=== PATIENT | female | born 1945 | race Caucasian/White ===

== ENCOUNTER 2020-09-13 08:51 | Day surgery (SDC) | payer OTHER, MEDICARE ==
--- OUTSIDE RECORDS SUMMARY | 2020-09-13 08:54 | XMS REPORT | Continuity of Care Document ---
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 gabapentin 300 300 mg = 1 Active Mische r MG Oral Capsule cap, PO, 019 Neuro BID, # 60 cap, 3 Refill(s), Pharmacy: [id number] Lorazepam 1 mg, PO, Active [facility] PRN, 0 019 Neuro Refill(s) meloxicam 15 mg, PO, Active Mischer Daily, 0 019 Neuro Refill(s) Amlodipine 10 mg, PO, Active Mischer Daily, 0 019 Neuro Refill(s) Claritin 10 mg, PO, Active Mischer Daily, 0 019 Neuro Refill(s) Metformin 1,000 mg, Active Mischer PO, BID, 0 019 Neuro Refill(s) atorvastatin 20 mg, PO, Active Mischer Daily, 0 019 Neuro Refill(s) Paroxetine 20 mg, PO, Active [facility]ischer Daily, 0 019 Neuro Refill(s) Allergies, Adverse Reactions, Alerts No Known Medication Allergies Immunizations No Data Provided for This Section Results No Data Provided for This Section Pathology Reports No Data Provided for This Section Diagnostic Reports No Data Provided for This Section Consultation Notes No Data Provided for This Section Discharge Summaries No Data Provided for This Section History and Physicals No Data Provided for This Section Vital Signs Vital Sign Value Date Comments Source Systolic (mm Hg) 120 04/22/2019 [facility] [place] Diastolic (mm Hg) 64 04/22/2019 [facility] Ne uro Heart Rate 82 04/22/2019 [facility] Neuro Respitory Rate 16 04/22/2019 [facility] Neuro Height 157.48 cm 04/22/2019 [facility] Neuro Weight 64.545 04/22/2019 [facility] Neuro BMI Calculated 26.03 04/22/2019 [facility] Neuro BMI Calculated 26.03 03/16/2019 [facility] Neuro Weight 64.545 03/16/2019 [facility] Neuro Height 157.48 cm 03/16/2019 [facility] Neuro Systolic (mm Hg) 162 03/16/2019 [facility] [place] Diastolic (mm Hg) 79 03/16/2019 [facility] Ne uro Heart Rate 88 03/16/2019 [facility] Neuro Respitory Rate 16 03/16/2019 [facility] Neuro Encounters Location Location Encounter Encounter Reason Attending ADM DE Stat us Source Details Type Number For Provider Date Date Visit Outpatient [id number] Salty 03/16 [facility] Evan MNA Outpatient [id number] Salty 03/16 03/17 [facility] Neurology [facility] [place] Outpatient [id number] Salty 04/22 [facility] Evan MNA Outpatient [id number] Salty 04/22 04/23 [facility] Neurology [facility] Neuro [place] Outpatient [id number] Salty 06/22 [facility] [place] MNA Ambulatory [id number] Salty 06/22 06/22 [facility] Neurology Pre-Reg [facility] Neuro [place] MNA Outside [id number] 08/19 08/21 [facility] Neurology Medical /2018 Neuro [place] Records Procedures Procedure Code Date Perfomer Comments Source Colonoscopy [id number] [facility] Neuro Hysterectomy [id number] [facility] Neur o Rectal prolapse [id number] [facility] N euro care Assessment and Plan No Data Provided for This Section Plan of Care No Data Provided for This Section Social History Social History Date Source Social History TypeResponse 03/16/2019 [facility] o Employment/School 1, 2 Smoking Status Unknown if ever smoked; Exposure to [employer] Smoke Unable to obtain; Cigarette Smoking Last 365 Days Unable to obtain; Reg Smoking Cessation Counseling No entered on: 04/22/19 [id number] Sheehan release medical information to Favian syed Family History No Data Provided for This Section Advance Directives No Data Provided for This Section Functional Status No Data Provided for This Section
[2020-09-13] MEDS ORDERED: NA CHLORIDE 0.9% 1,000 ML ONE (09:30)
[2020-09-13] MEDS ORDERED: GLYCOPYRROLATE 0.2 MG/ML SYR ONE (10:47)
[2020-09-13] MEDS ORDERED: LIDOCAINE 1% MPF 30 ML VIAL ONE (10:47)
[2020-09-13] MEDS ORDERED: propofoL 200 MG/20 ML VIAL IV ONE ×2 (10:47→12:31)
--- NOTE | 2020-09-13 12:18 | ENDO RPT ---
[address], [address] COLONOSCOPY PROCEDURE REPORT EXAM DATE: 09/13/2020 PATIENT NAME: Melissa Cooley MR #: [id number] BIRTHDATE: 1945 ATTENDING: Ariel Reese DR STATUS: outpatient GROUND OPERATIONS SUPERINTENDENT: Fox Hoyt [facility], Florence Bishop RN, and Rosana GOMES INDICATIONS: The patient is a 75 yr old Female here for a colonoscopy due to colon cancer screening and change in bowel habits PROCEDURE PERFORMED: Colonoscopy with biopsy MEDICATIONS: Per Anesthesia. ESTIMATED BLOOD LOSS: None CONSENT: The patient understands the risks and benefits of the procedure and understands that these risks include, but are not limited to: sedation, allergic reaction, infection, perforation and/or bleeding. Alternative means of evaluation and treatment include, among others: physical exam, x-rays, and/or surgical intervention. The patient elects to proceed with this endoscopic procedure. DESCRIPTION OF PROCEDURE: During intra-op preparation period all mechanical medical equipment was checked for proper function. Hand hygiene and appropriate measures for infection prevention was taken. Procedure, possible complications, alternatives including, but not limited to possibility of bleeding, perforation, tear, infection, sepsis, need for surgery, need for blood transfusion, were explained to the patient. After the risks, benefits and alternatives of the procedure were thoroughly explained, Informed consent was verified, confirmed and timeout was successfully executed by the treatment team. The patient was placed in the left lateral position. A digital rectal exam was performed and revealed internal hemorrhoids. After appropriate level of anesthesia, the scope was passed. The EC-[id number] ([id number]) and [id number] ([id number]) endoscope was introduced through the anus and advanced to the cecum, which was identified by the ileocecal valve. The quality of the prep was fair. The instrument was then slowly withdrawn as the colon was fully examined. Scope withdrawal time was 12 minutes. COLON FINDINGS: A large sized diffuse patch of atrophic abnormal mucosa was found at the cecum and splenic flexure. The mucosa was atrophic, erythematous and had petechiae. A biopsy of the area was performed using cold forceps. A mild spasm was present throughout the entire examined colon. Retroflexed views revealed no abnormalities. The scope was then completely withdrawn from the patient and the procedure terminated. ADVERSE EVENTS: There were no complications. IMPRESSIONS: 1. Large sized diffuse abnormal mucosa was found at the cecum and splenic flexure; The mucosa was atrophic, erythematous and had petechiae; biopsy of the area was performed using cold forceps 2. Mild spasm throughout the entire examined colon RECOMMENDATIONS: 1. avoid NSAIDS for 2 weeks 2. await biopsy results 3. fiber rich diet 4. follow-up: office 2 week(s) 5. Monitor for any evidence of rectal bleeding. 6. hemorrhoidal hygiene 7. increase dietary water RECALL: for Colonoscopy, pending biopsy results. Ariel Reese DR eSigned: Ariel Reese DR 09/13/2020 12:17 PM cc: CPT CODES: ICD9 CODES: PATIENT NAME: Melissa Cooley MR#: [id number]
[2020-09-13 13:58] VITALS: BP 130/57; TEMP 97.7; O2SAT 97
== END 2020-09-13 12:21 | disposition home or self-care (01) ==
LOC: OR 08:51
PROVIDERS: ATTEND Surgery
PROC: 0DBL8ZX Excision of Transverse Colon, Via Natural or Artificial Opening Endoscopic, Diagnostic (ICD-10-PCS; 2020-09-13)
PROC: 0DBH8ZX Excision of Cecum, Via Natural or Artificial Opening Endoscopic, Diagnostic (ICD-10-PCS; principal; 2020-09-13 11:00)
DX: R10.9 Unspecified abdominal pain (principal); K59.00 Constipation, unspecified; K64.8 Other hemorrhoids; Z20.822 Contact with and (suspected) exposure to COVID-19
CPT/HCPCS: 82947; 88305; 45380; U0002; J2704 ×2; J7030

== ENCOUNTER 2022-05-11 00:57 | Emergency (ER) | payer OTHER, MEDICARE ==
[2022-05-11] MEDS ORDERED: NA CHLORIDE 0.9% 1,000 ML ONE (02:20)
[2022-05-11 02:47] LABS: Absolute Lymphocytes (CBC) 1.8 K/uL (0.7-4.9); Hematocrit 32.9 % (36.0-45.0); Lymphocytes % 24.9 % (15.3-44.8); MCV 83.4 fL (80-100); MPV 9.4 fL (7.6-11.3); RBC Red Blood Cell Count 3.94 M/uL (3.86-4.86)
[2022-05-11 02:50] LABS: Urine Bacteria <20 /HPF (<20); Urine Mucus Slight /HPF (None Seen); Urine RBC <5 /HPF (None Seen)
[2022-05-11 02:57] LABS: Potassium 3.7 mmol/L (3.5-5.1)
[2022-05-11 03:59] LABS: SARS-CoV-2 Antigen Rapid Res Negative (Negative)
--- NOTE | 2022-05-11 05:14 | ER ---
Nurse's Notes [facility] Name: Melissa Cooley Age: 76 yrs Sex: Female : 1945 Arrival Date: 05/11/2022 Time: 01:03 Bed 16 Private MD: Diagnosis: Person with feared health complaint in whom no diagnosis is made;Dehydration Presentation: 05/11 01:30 Chief complaint: Patient states: she lives at [facility] and thinks "someone bb there is trying to poison some of us" she started having visual hallucinations she was also diagnosed with Covid on Friday and is taking medication for it. Coronavirus screen: cough unrelated to allergies, muscle pain, Client reports previous positive COVID test result. Ebola Screen: No symptoms or risks identified at this time. Initial Sepsis Screen: Does the patient meet any 2 criteria? No. Patient's initial sepsis screen is negative. Does the patient have a suspected source of infection? Yes: Other: positive for Covid. Risk Assessment: Do you want to hurt yourself or someone else? Patient reports no desire to harm self or others. Onset of symptoms is unknown. 01:30 Method Of Arrival: Ambulatory bb 01:30 Acuity: DIONISIO 2 bb Historical: - Allergies: 01:36 No Known Allergies; bb - Home Meds: 01:36 Metformin Oral [Active]; paroxetine oral [Active]; amlodipine oral [Active]; atorva bb [Active]; Lorazepam Oral [Active]; - PMHx: 01:36 Diabetes mellitus; Anxiety; bb - Immunization history:: unknown. - Social history:: Smoking status: unknown. - Family history:: not pertinent. - Hospitalizations: : No recent hospitalization is reported. Screenin:31 Abuse screen: Denies threats or abuse. Nutritional screening: No deficits noted. ja4 Tuberculosis screening: No symptoms or risk factors identified. Fall Risk None identified. Assessment: 02:31 General: Appears in no apparent distress. Pain: Denies pain. Neuro: No deficits noted. ja4 Reports pt thinks her assisted living staff is putting something in food to get rid of the residents. Respiratory: No deficits noted. Vital Signs: 01:30 BP 120 / 90; Pulse 93; Resp 18; Temp 98.3(O); Pulse Ox 97% on R/A; Weight 63.5 kg (R); bb Height 5 ft. 2 in. (157.48 cm) (R); Pain 0/10; 02:33 BP 102 / 65; Pulse 87; Resp 14; Pulse Ox 95% on R/A; ja4 05:22 BP 123 / 84; Pulse 78; Resp 14; Pulse Ox 96% on R/A; ja4 01:30 Body Mass Index 25.61 (63.50 kg, 157.48 cm) ED Course: 01:03 Patient arrived in ED. ja2 01:04 Ki Albarran MD is Attending Physician. rn 01:27 See Wilburn RN is Primary Nurse. ke1 01:36 Triage completed. bb 01:36 Arm band placed on Patient placed in an exam room, on a stretcher, on pulse oximetry. bb 02:06 XRAY Chest (1 view) In Process Unspecified. EDMS 02:20 CT Head Brain wo Cont In Process Unspecified. EDMS 02:30 Urine Culture Sent. ja4 02:30 Urine Microscopic Only Sent. ja4 02:30 Basic Metabolic Panel Sent. ja4 02:30 CBC with Diff Sent. ja4 02:31 No apparent distress. ja4 02:31 Bed in low position. Call light in reach. Side rails up X 1. Side rails up X2. ja4 02:31 No provider procedures requiring assistance completed. Inserted saline lock: 20 gauge ja4 in right wrist, using aseptic technique. Blood collected. 05:22 IV discontinued, intact, bleeding controlled, No redness/swelling at site. Pressure ja4 dressing applied. Administered Medications: 02:34 Drug: NS 0.9% 1000 ml Route: IV; Rate: 1000 ml; Site: right wrist; ja4 Medication: 02:31 VIS not applicable for this client. ja4 Outcome: 05:13 Discharge ordered by . rn 05:22 Discharged to home ambulatory. ja4 05:22 Condition: good 05:22 Discharge instructions given to patient, Instructed on discharge instructions, follow up and referral plans. Demonstrated understanding of instructions, follow-up care. 05:24 Patient left the ED. ja4 Signatures: Dispatcher [employer] EDKimberly Colunga RN RN bb Nieto, Roman, MD MD rn Alexander, Jessica ja2 See Wilburn RN RN ke1 Sammy Pérez, RN RN ja4
--- NOTE | 2022-05-11 05:14 | EDPHYS ---
Physician Documentation [facility] Name: Melissa Cooley Age: 76 yrs Sex: Female : 1945 Arrival Date: 05/11/2022 Time: 01:03 Bed 16 Private MD: ED Physician Ki Albarran HPI: 05/11 02:28 This 76 yrs old Female presents to ER via Ambulatory with complaints of HALLUCINATION. rn 02:28 The patient presents with hallucinations. Onset: The symptoms/episode began/occurred at rn an unknown time. Possible causes: unknown. Associated signs and symptoms: Pertinent negatives: abdominal pain, chest pain, headache, seizure, shortness of breath, vomiting. Current symptoms: In the emergency department the patient's symptoms are unchanged from the initial presentation. It is unknown whether or not the patient has had similar symptoms in the past. The patient has not recently seen a physician. Pt reports believes that someone is poisoning her, states not sure who, but thinks they are putting something into her food. She has locked herself in her room, using garbage can to go to bathroom. Drove herself here because wants to be tested for poison. Also, diagnosed with COVID this week, started on unknown medication, is supposed to take it for days. No fever. No sob. No abd pain. Reports not eating or drinking much because scared to leave her room. . Historical: - Allergies: 01:36 No Known Allergies; bb - Home Meds: 01:36 Metformin Oral [Active]; paroxetine oral [Active]; amlodipine oral [Active]; atorva bb [Active]; Lorazepam Oral [Active]; - PMHx: 01:36 Diabetes mellitus; Anxiety; bb - Immunization history:: unknown. - Social history:: Smoking status: unknown. - Family history:: not pertinent. - Hospitalizations: : No recent hospitalization is reported. ROS: 02:28 Constitutional: Negative for fever, chills, and weight loss, Eyes: Negative for injury, rn pain, redness, and discharge, Neck: Negative for injury, pain, and swelling, Cardiovascular: Negative for chest pain, palpitations, and edema, Respiratory: Negative for shortness of breath, cough, wheezing, and pleuritic chest pain, Abdomen/GI: Negative for abdominal pain, nausea, vomiting, diarrhea, and constipation, Back: Negative for injury and pain, MS/Extremity: Negative for injury and deformity, Skin: Negative for injury, rash, and discoloration, Neuro: Negative for headache, numbness, tingling, and seizure. Exam: 02:28 Constitutional: This is a well developed, well nourished patient who is awake, alert, rn and in no acute distress. Head/Face: Normocephalic, atraumatic. Eyes: Periorbital areas with no swelling, redness, or edema. ENT: Dry MM Neck: Trachea midline, no thyromegaly or masses palpated, and no cervical lymphadenopathy. Supple, full range of motion without nuchal rigidity, or vertebral point tenderness. No Meningismus. Cardiovascular: Regular rate and rhythm. No pulse deficits. Respiratory: No increased work of breathing, no retractions or nasal flaring. Abdomen/GI: Soft, non-tender Skin: Warm, dry MS/ Extremity: Pulses equal, no cyanosis. Neuro: Awake and alert, GCS 15, oriented to person, place, time, and situation. Cranial nerves II-XII grossly intact. Motor strength 5/5 in all extremities. Sensory grossly intact. Vital Signs: 01:30 BP 120 / 90; Pulse 93; Resp 18; Temp 98.3(O); Pulse Ox 97% on R/A; Weight 63.5 kg (R); bb Height 5 ft. 2 in. (157.48 cm) (R); Pain 0/10; 02:33 BP 102 / 65; Pulse 87; Resp 14; Pulse Ox 95% on R/A; ja4 05:22 BP 123 / 84; Pulse 78; Resp 14; Pulse Ox 96% on R/A; ja4 01:30 Body Mass Index 25.61 (63.50 kg, 157.48 cm) bb MDM: 01:04 Patient medically screened. rn 05:10 Differential Diagnosis: electrolyte abnormality, hypoglycemia, intracranial bleed, UTI, rn volume depletion. Data reviewed: vital signs, nurses notes, lab test result(s), radiologic studies, CT scan, plain films, and as a result, I will discharge patient. Counseling: I had a detailed discussion with the patient and/or guardian regarding: the historical points, exam findings, and any diagnostic results supporting the discharge/admit diagnosis, lab results, radiology results, the need for outpatient follow up, to return to the emergency department if symptoms worsen or persist or if there are any questions or concerns that arise at home. Response to treatment: and as a result, I will discharge patient. Special discussion: I discussed with the patient/guardian in detail that at this point there is no indication for admission to the hospital. It is understood, however, that if the symptoms persist or worsen the patient needs to return immediately for re-evaluation. ED course: CT head without acute findings, CXR with possible residua infection vs atelectasis, already on Abx for this and still taking, no oxygen requirement, patient feels fine, denies sob. Pt wants to go back home. Offered her observation and she declined. Spoke with her at length regarding her concerns of possible poisoning and told her to report it and also talk to her family about it. . 05/11 01:44 Order name: CBC with Diff; Complete Time: 03:02 rn 05/11 01:44 Order name: Basic Metabolic Panel; Complete Time: 03:02 rn 05/11 01:44 Order name: CT Head Brain wo Cont rn 05/11 01:44 Order name: Urine Culture rn 05/11 01:44 Order name: Urine Microscopic Only; Complete Time: 03:02 rn 05/11 02:45 Order name: SARS RAPID; Complete Time: 04:06 ds4 05/11 01:44 Order name: IV Start; Complete Time: 02:30 rn 05/11 01:44 Order name: XRAY Chest (1 view) rn Administered Medications: 02:34 Drug: NS 0.9% 1000 ml Route: IV; Rate: 1000 ml; Site: right wrist; ja4 Disposition Summary: 05/11/22 05:13 Discharge Ordered Location: Home rn Problem: an ongoing problem rn Symptoms: have improved rn Condition: Stable rn Diagnosis - Person with feared health complaint in whom no diagnosis is made rn - Dehydration rn Followup: rn - With: Private Physician - When: 1 - 2 days - Reason: Recheck today's complaints, Re-evaluation by your physician Discharge Instructions: - Discharge Summary Sheet rn - Dehydration, Adult rn Forms: - Medication Reconciliation Form rn - Thank You Letter rn - Antibiotic clinical staff rn - Prescription Opioid Use rn Signatures: Dispatcher [employer] EDKimberly Colunga RN RN bb Nieto, Roman, MD MD rn Brown, Sophia, PA PA sb3 Sammy Pérez, RN RN ja4
[2022-05-11 09:11] VITALS: TEMP 98.3
[2022-05-11 09:15] VITALS: BP 123/84; O2SAT 96
--- NOTE | 2022-05-12 16:51 | RAD REPORT ---
EXAM DESCRIPTION: RAD - Chest Single View - 05/11/2022 2:04 am CLINICAL HISTORY: COVID + TECHNIQUE: Frontal view of the chest. COMPARISON: No relevant prior studies available. FINDINGS: Lungs: Minimal hazy bibasilar opacities. Pleural space: Unremarkable. No pneumothorax. Heart: Unremarkable. No cardiomegaly. Mediastinum: Unremarkable. Bones/joints: Multilevel spondylosis. No acute fracture. Vasculature: Thoracic aortic atherosclerosis. IMPRESSION: Minimal hazy bibasilar opacities (atelectasis and/or infiltrate). Electronically signed by: Anne Guerra MD 05/11/2022 3:49 AM CDT Due to temporary technical issues with the PACS/Fluency reporting system, reports are being signed by the in house radiologists without review as a courtesy to insure prompt reporting. The interpreting radiologist is fully responsible for the content of the report.
--- NOTE | 2022-05-12 17:24 | RAD REPORT ---
EXAM DESCRIPTION: CT - Head Brain Wo Cont - 05/11/2022 6:45 am CLINICAL HISTORY: AMS TECHNIQUE: Axial computed tomography images of the head/brain without intravenous contrast. Sagitt al and coronal reformatted images were created and reviewed. This CT exam was performed using one o r more of the following dose reduction techniques: automated exposure control, adjustment of the mA and/or kV according to patient size, and/or use of iterative reconstruction technique. COMPARISON: CT Head dated 07/27/2018 FINDINGS: Brain: Mild to moderate cerebral atrophy and bilateral periventricular and subcortical w markos matter low-attenuation most compatible with chronic microvascular angiopathy, mildly progressed. No hemorrhage. Ventricles: Unremarkable. No ventriculomegaly. Bones/joints: Unremarkable. No acute fracture. Soft tissues: Unremarkable. Vasculature: There is atherosclerotic disease of the internal carotid and vertebral arteries bilate rally. Sinuses: Complete opacification of the left maxillary sinus with wall thickening compatible with ch ronic sinusitis. Complete opacification of the left frontal sinus. Partial opacification of the lef t anterior ethmoid sinus. Minimal right maxillary and ethmoid and bilateral sphenoid sinus mucosal th ickening. Mastoid air cells: Unremarkable as visualized. No mastoid effusion. IMPRESSION: 1. No acute hemorrhage, focal mass or large territory infarction. 2. Other findings as above. Electronically signed by: Anne Guerra MD 05/11/2022 3:54 AM CDT Due to temporary technical issues with the PACS/Fluency reporting system, reports are being signed by the in house radiologists without review as a courtesy to insure prompt reporting. The interpreting radiologist is fully responsible for the content of the report.
== END 2022-05-11 05:24 | disposition home or self-care (01) ==
LOC: ER 00:57
DX: Z71.1 Person with feared health complaint in whom no diagnosis is made (principal); E86.0 Dehydration; F41.9 Anxiety disorder, unspecified; E11.9 Type 2 diabetes mellitus without complications; Z20.822 Contact with and (suspected) exposure to COVID-19
CPT/HCPCS: 87088; 85025; 87086; 80048; 36415; 81015; 70450; 71045; 99284; 87811; J7030

== ENCOUNTER 2023-08-07 14:21 | Emergency (ER) | payer OTHER, MEDICARE ==
[2023-08-07] MEDS ORDERED: ACETAMINOPHEN 500 MG TAB ONE (15:20)
[2023-08-07] MEDS ORDERED: LIDOCAINE 4% PATCH ONE (15:20)
[2023-08-07] MEDS ORDERED: predniSONE 20 MG TAB ONE (15:20)
--- NOTE | 2023-08-07 16:04 | RAD REPORT ---
EXAM DESCRIPTION: RAD - Knee Left 3 View - 08/07/2023 3:27 pm CLINICAL HISTORY: PAIN COMPARISON: No comparisons TECHNIQUE: Left knee, 3 views. FINDINGS: No fracture, dislocation or periosteal reaction.Mild joint effusion seen. Mild tricompartm ental osteoarthritic changes with marginal spurring most notably at the patellofemoral articulation. No soft tissue abnormality. Clinical concerns for internal derangement or occult bony injury could be further assessed with MR im aging. IMPRESSION: No acute osseous abnormality. Mild joint effusion and mild degenerative changes as above .
--- NOTE | 2023-08-07 16:15 | ER ---
Nurse's Notes [facility] Name: Melissa Cooley Age: 77 yrs Sex: Female : 1945 Arrival Date: 08/07/2023 Time: 14:21 Bed DIS3 Private MD: Diagnosis: Pain in left knee Presentation: 08/07 14:32 Chief complaint: Patient states: fell last night, fell to both knees, left hurts worse iw than right. Coronavirus screen: At this time, the client does not indicate any symptoms associated with coronavirus-19. Ebola Screen: Patient negative for fever greater than or equal to 101.5 degrees Fahrenheit, and additional compatible Ebola Virus Disease symptoms Patient denies exposure to infectious person. Patient denies travel to an Ebola-affected area in the 21 days before illness onset. No symptoms or risks identified at this time. Risk Assessment: Do you want to hurt yourself or someone else? Patient reports no desire to harm self or others. Onset of symptoms was August 06, 2023. 14:32 Method Of Arrival: EMS: [facility] iw 14:32 Acuity: DIONISIO 4 iw Historical: - PMHx: 14:33 Anxiety; diabetes mellitus; iw Screenin:56 [facility] ED Fall Risk Assessment (Adult) History of falling in the last 3 months, iw including since admission Yes- single mechanical fall (1 pt). Abuse screen: Denies threats or abuse. Denies injuries from another. Nutritional screening: No deficits noted. Tuberculosis screening: No symptoms or risk factors identified. Assessment: 14:55 General: Appears in no apparent distress. Behavior is calm, cooperative. Pain: iw Complains of pain in right knee. Pain: Complains of pain in left leg, right leg. Neuro: Level of Consciousness is awake, alert, obeys commands. Vital Signs: 14:30 BP 131 / 59; Pulse 83; Resp 16; Pulse Ox 94% on R/A; iw ED Course: 14:25 Patient arrived in ED. iw 14:28 Thomas Pack MD is Attending Physician. ec2 14:31 Emilie Salcedo, GABRIELLA is Primary Nurse. iw 14:33 Triage completed. iw 15:29 Knee Left 3 View XRAY In Process Unspecified. EDMS Administered Medications: 15:31 Drug: Acetaminophen PO 1000 mg PO once Route: PO; iw 16:00 Follow up: Response: No adverse reaction iw 15:31 Drug: Lidoderm Topical Patch 5 % (700 mg/patch) 1 patches Topical in affected area iw once; leave on for 12 hours; cover most painful area; may cut into smaller pieces Route: Topical; Site: affected area; 15:31 Drug: predniSONE PO 40 mg PO once Route: PO; iw 16:00 Follow up: Response: No adverse reaction iw Outcome: 16:15 Discharge ordered by . ec2 16:36 Patient left the ED. iw Signatures: Dispatcher [employer] Emilie Garcia, RN RN Thomas Woo MD MD ec2
--- NOTE | 2023-08-07 16:15 | EDPHYS ---
Physician Documentation [facility] Name: Melissa Cooley Age: 77 yrs Sex: Female : 1945 Arrival Date: 08/07/2023 Time: 14:21 Bed DIS3 Private MD: ED Physician Thomas Pack HPI: 08/07 14:33 This 77 yrs old Female presents to ER via Unassigned with complaints of Fall ec2 Injury, Knee Injury. 14:33 Patient arrives today for evaluation of left knee pain along with back pain. States ec2 that she been having back pain for several days to weeks, states this is not new. Patient reports what is noted that she is having worsening pain in the bilateral knees however worse in the left knee. States that she noted some swelling. Denies any falls or trauma states that yesterday her legs have given out however she did not fall. Denies any head or neck pain, denies any chest pain or shortness of breath. States that she has taken Tylenol for the symptoms.. Historical: - PMHx: 14:33 Anxiety; diabetes mellitus; iw ROS: 14:33 Constitutional: as per hpi ec2 Exam: 14:33 Constitutional: GEN: NAD Head: atraumatic Eyes: EOMI Ears: External ears are ec2 normal. CV: regular rate LUNGS: no respiratory distress ABD: non-distended SKIN: no evidence of rashes MSK: no evidence of trauma, no C/T/L-spine TTP, left lower extremity with good range of motion, trace knee effusion noted, no erythema, no warmth, no ecchymosis, no trauma NEURO: moves all extremities equally Vital Signs: 14:30 BP 131 / 59; Pulse 83; Resp 16; Pulse Ox 94% on R/A; iw MDM: 14:29 Patient medically screened. ec2 14:33 Data reviewed: vital signs. ED course: Patient arrives today for evaluation of left ec2 knee pain and back pain. Examination remarkable for well-appearing nontoxic dividual is otherwise in no acute distress. Will obtain a radiograph of the left knee and treat the patient's symptoms with Tylenol, Lidoderm patch as well as steroids. Currently considering arthritis, low suspicion for bony fracture or bony contusion, low suspicion for L-spine pathology given the reassuring examination.. 16:15 ED course: Knee x-ray shows no acute traumatic process. Will discharge home with ec2 prescription for prednisone. Instructed on [id number] medications. Return precautions given. . 08/07 14:32 Order name: Knee Left 3 View XRAY; Complete Time: 16:15 ec2 Administered Medications: 15:31 Drug: Acetaminophen PO 1000 mg PO once Route: PO; iw 16:00 Follow up: Response: No adverse reaction iw 15:31 Drug: Lidoderm Topical Patch 5 % (700 mg/patch) 1 patches Topical in affected area iw once; leave on for 12 hours; cover most painful area; may cut into smaller pieces Route: Topical; Site: affected area; 15:31 Drug: predniSONE PO 40 mg PO once Route: PO; iw 16:00 Follow up: Response: No adverse reaction iw Disposition Summary: 08/07/23 16:15 Discharge Ordered Notes: Location: Home ec2 Condition: Stable ec2 Diagnosis - Pain in left knee ec2 Followup: ec2 - With: Private Physician - When: - Reason: Recheck today's complaints Discharge Instructions: - Discharge Summary Sheet ec2 - Acute Knee Pain, Adult ec2 Forms: - Medication Reconciliation Form ec2 - Thank You Letter ec2 - Antibiotic Education ec2 - Prescription Opioid Use ec2 - Patient Portal Instructions ec2 - Leadership Thank You Letter ec2 Prescriptions: - Prednisone 20 mg Oral Tablet - take 2 tablets ORAL route once daily for 5 days; 10 tablet; Refills: 0, Product ec2 Selection Permitted Signatures: Dispatcher [employer] Emilie Garcia RN RN iw Corral, Edwin, MD MD ec2
[2023-08-07 16:47] VITALS: BP 131/59; O2SAT 94
== END 2023-08-07 16:36 | disposition home or self-care (01) ==
LOC: ER 14:21
DX: M25.562 Pain in left knee (principal); M54.9 Dorsalgia, unspecified
CPT/HCPCS: 73562; 99283; J7512; J2001